=== PATIENT | female | born 1985 | race Caucasian/White ===

== ENCOUNTER 2019-11-08 11:11 | Emergency (ER) | payer OTHER, MEDICAID, SELFPAY ==
[2019-11-08 12:00] VITALS: BP 140/101; PULSE 64; RESP 20; TEMP 36.7; O2SAT 98; BMI 37.5
--- NOTE | 2019-11-08 13:20 | ED.DENTAL ---
HPI - Dental/Oral <CHAPARRITA Kyle - Last Filed: 11/08/19 13:36> General Chief complaint: Dental/Oral Stated complaint: right side mouth abcess Time Seen by Provider: 11/08/19 13:07 Source: patient Mode of arrival: Ambulatory Limitations: no limitations History of Present Illness HPI Narrative: The patient is a 34-year-old female current smoker who denies any pertinent medical history who presents with a chief complaint of an infection on the right side of her mouth. She states that she has poor dentition, has not followed up with a dentist since she was 11 years old. She denies any fevers nausea vomiting or diarrhea. She has not taken anything at home to feel better, states that the pain is not very bad. Related Data Previous Rx's Medication Instructions Recorded clindamycin HCl 300 mg PO TID 10 Days #30 cap 11/08/19 Review of Systems <CHAPARRITA Kyle - Last Filed: 11/08/19 13:36> Review of Systems Narrative: GENERAL: Denies chills, fatigue, malaise, fever, sweats. HEENT: See HPI RESPIRATORY: Denies dyspnea, cough, wheezing, hemoptysis, sputum. CARDIOVASCULAR: Denies chest pain, palpitations, orthopnea, edema, GASTROINTESTINAL: Denies nausea, vomiting, abdominal pain, diarrhea, constipation, melena. : Denies dysuria, frequency, incontinence, hematuria, urinary retention. MUSCULOSKELETAL: denies weakness, joint pain, or bony pain SKIN: Denies rash, skin lesions, or other NEUROLOGIC: Denies weakness, headache, numbness, change in speech, confusion, seizures, incoordination. PSYCHIATRIC: No concerning psychosocial issues. 12 point review of systems is negative except for those stated above Patient History <CHAPARRITA Kyle - Last Filed: 11/08/19 13:36> Social History Smoking Status: Current every day smoker Smoking Status: Current every day smoker tobacco type: cigarettes alcohol intake frequency: a few times a month Substance Use Type: marijuana Exam <CHAPARRITA Kyle - Last Filed: 11/08/19 13:36> Narrative Exam Narrative: GENERAL: This is a well-nourished, well-developed patient, in no acute distress HEAD: Atraumatic. Normocephalic. No temporal or scalp tenderness. EYES: Pupils equal round and reactive. Extraocular motions intact. No scleral icterus. No injection or drainage. ENT: Nose without bleeding, purulent drainage or septal hematoma. Throat without erythema, tonsillar hypertrophy or exudate. Uvula midline. Airway patent. Poor dentition noted. Swelling, erythema noted on distal aspect right lower gum. NECK: Trachea midline. No JVD or lymphadenopathy. Supple, nontender, no meningeal signs. CARDIOVASCULAR: Regular rate and rhythm RESPIRATORY: No cough. No increased respiratory effort. No accessory muscle use. EXTREMITIES: No clubbing, cyanosis, or edema. No joint tenderness, effusion, or edema noted. BACK: Nontender without deformity or crepitance. No flank tenderness. NEURO: AOx3. SKIN: No rash or erythema. Initial Vital Signs Initial Vital Signs: Vital Signs Temperature 98.1 F 11/08/19 12:00 Pulse Rate 64 11/08/19 12:00 Respiratory Rate 20 11/08/19 12:00 Blood Pressure 140/101 H 11/08/19 12:00 Pulse Oximetry 98 11/08/19 12:00 <Manuela Wright DO - Last Filed: 11/08/19 19:31> Initial Vital Signs Initial Vital Signs: Vital Signs Temperature 98.1 F 11/08/19 12:00 Pulse Rate 64 11/08/19 12:00 Respiratory Rate 20 11/08/19 12:00 Blood Pressure 140/101 H 11/08/19 12:00 Pulse Oximetry 98 11/08/19 12:00 Course <CHAPARRITA Kyle - Last Filed: 11/08/19 13:36> Vital Signs Vital signs: Vital Signs - 8 hr 11/08/19 12:00 Temperature 98.1 F Pulse Rate 64 Respiratory Rate 20 Blood Pressure 140/101 H Pulse Oximetry 98 <Manuela Wright DO - Last Filed: 11/08/19 19:31> Vital Signs Vital signs: Vital Signs - 8 hr 11/08/19 12:00 Temperature 98.1 F Pulse Rate 64 Respiratory Rate 20 Blood Pressure 140/101 H Pulse Oximetry 98 MDM - Dental/Oral <CHAPARRITA Kyle - Last Filed: 11/08/19 13:36> MDM Narrative Medical decision making narrative: The patient is a 34-year-old female with poor dentition who presents with a chief complaint of possible dental infection. Exam correlates with dental infection. She states she is deathly allergic to penicillin, so started on clindamycin with strict instructions to take it with a probiotic or yogurt. Patient states that she does not want to have it drained today as she has had very bad experiences in the past with dentist draining an abscess, and would like to try antibiotics 1st. I discussed at length follow up if she has any signs of systemic infection such as fever etcetera. Encouraged follow-up with primary care provider in the next few days as well as follow-up with a dentist. Patient has no questions or concerns upon discharge and states understanding return precautions as well as follow-up care. Discharge Plan Departure Patient Disposition: Home Clinical Impression: Dental abscess Discharge Date/Time: 11/08/19 13:35 Instructions: Tooth Abscess, DI for Dental Pain Activity Restrictions/Additional Instructions: Thank you for trusting us with your care today I sent a prescription of an antibiotic to [facility] in [place] Please take this with probiotic or yogurt I suggest follow-up with a primary care provider and or dentist. I have given you contact information at [facility] resource recovery engineer who can help you find a follow-up provider. I suggest [id number] medications as needed and able for pain, warm packs Prescriptions: New clindamycin HCl 300 mg capsule 300 mg PO TID 10 Days Qty: 30 RF: 0 Referrals: [facility] [Outside] <Manuela Wright, - Last Filed: 11/08/19 19:31> [facility] Attending Pretty[employer] Attestation: I was immediately available in the department for consultation. Documentation has been reviewed. I agree with assessment and plan.
== END 2019-11-08 13:35 | disposition home or self-care (01) ==
PROVIDERS: Emergency Provider Nurse Practitioner Family
DX: K04.7 Periapical abscess without sinus (principal)
CPT/HCPCS: 99281